=== PATIENT | male | born 1980 | race Caucasian/White ===

== ENCOUNTER 2018-04-14 20:01 | Inpatient (IN) | payer MEDICAID ==
[~2018-04-14] VITALS: Ht 160 cm; Wt 72.7 kg
--- NOTE | ~2018-04-14 | OP ---
PATIENT NAME: SONDRA BRYSON MEDICAL RECORD: [id number] :84 LOCATION:[id number] ADMISSION DATE:04/14/18 SURGEON: JAMISON WINSTON MD DATE OF OPERATION: 04/15/2018 PREOPERATIVE DIAGNOSIS: Incarcerated right recurrent inguinal hernia, large. POSTOPERATIVE DIAGNOSES: Incarcerated right recurrent inguinal hernia, large with incarcerated omentum in the right hemiscrotum. PROCEDURE: Open recurrent right indirect inguinal hernia repair with a polypropylene mesh. SURGEON: Jamison Winston MD E LEARNING COORDINATOR: None. BLOOD LOSS: Minimal. ANESTHESIA: General. COMPLICATIONS: None. The risks, possible complications, and alternatives to procedure were explained to the patient. He elects to proceed. OPERATIVE COURSE: The patient was conveyed to the operating room urgently on 04/15/2018. This procedure was performed urgently because we could not rule out a strangulated hernia. The abdomen and genitals were sterilely prepped and draped. An incision was accomplished in the right groin. Sharp dissection was carried down through the skin and subcutaneous tissue as well as Cyril fascia. I then bluntly cleaned the connective tissue from the underlying external oblique aponeurosis. I incised along the direction of its fibers. I bluntly dissected down through the internal oblique and transversus abdominis muscle layers. A preperitoneal pocket was fashioned bluntly. I was unable to reduce the large recurrent indirect hernia. At no time during the operation was there any apparent nervous injury. I incised into the hernia sac. I then began to reduce the right scrotal contents, which consisted of omentum only. The omentum was excised with the EnSeal device. I reperitonealized. I reduced the right indirect hernia as best I could, had to transect a portion of this sac. This was sent to pathology as a specimen. The cord structures were examined. Arterial signal could be heard in the cord structures with the handheld Doppler. I created a keyhole suture of polypropylene mesh around the cord structures, then sutured the 2 tags together posteriorly with #1 Surgidacs. I then cut 2 ovals out of a polypropylene mesh and then sutured the 2 ovals one on top of the other with a running #1 Surgidac. The mesh was then placed in the preperitoneal space. Once I was satisfied with placement of the mesh, I allowed the internal oblique and transversus abdominis muscle layers to come together over the mesh OPERATIVE REPORT [id number] SONDRA BRYSON and these were brought together with multiple interrupted horizontal mattress 0 Surgidacs incorporating a portion of the underlying mesh. The external oblique aponeurosis was then closed with running #1 Vicryls. Cyril fascia was approximated with interrupted 3-0 Vicryls. The subdermis was approximated with interrupted 3-0 Vicryls. The skin was approximated with a running intracuticular 4-0 Vicryl. The patient was then extubated and conveyed to post-anesthesia care unit, where he was in stable condition. TRANSINT:[id number] Voice Confirmation ID: [id number] DOCUMENT ID: [id number] JAMISON WINSTON MD at 1746 CC: [id number] DICTATION DATE: 04/16/18901 DOCUMENTATION COORDINATOR: 04/16/18 0934 ADM IN [facility] [address] [place] [id number]
[2018-04-14 20:37] LABS: APPEARANCE CLEAR (CLEAR); BILIRUBIN NEGATIVE (NEGATIVE); COLOR YELLOW (YELLOW); GLUCOSE NEGATIVE (NEGATIVE); KETONE NEGATIVE (NEGATIVE); NITRITE NEGATIVE (NEGATIVE); PROTEIN NEGATIVE (NEGATIVE); UROBILINOGEN NORMAL (NORMAL)
[2018-04-14 21:30] VITALS: BP 132/91
[2018-04-14 21:52] LABS: BASOPHILS 0.2 % (0-2); EOSINOPHILS 2.6 % (0-7); HEMATOCRIT 39.1 % (42.0-54.0); HEMOGLOBIN 13.6 g/dL (13.5-17.5); IMMATURE GRANULOCYTES 0.2 % (0-5); LYMPHOCYTES 40.1 % (15-50); MCH 30.6 pg (26.0-34.0); MCHC 34.8 g/dL (31.0-37.0); MCV 88.1 fL (80.0-100.0); MEAN PLATELET VOLUME 9.9 fL (7.4-10.4); MONOCYTES 8.7 % (2-11); NEUTROPHILS 48.2 % (40-80); PLATELET COUNT 241 10x3/uL (130-400); RBC 4.44 10x6/uL (4.20-6.10); RDW 13.1 % (11.5-14.5); WBC 5.3 10x3/uL (4.8-10.8)
[2018-04-14 22:00] LABS: ALBUMIN 3.8 g/dL (3.4-5.0); ALKALINE PHOSPHATASE 65 U/L (46-116); CALC OSMOLALITY 284 mosm/kg (275-300); CALCIUM 8.2 mg/dL (8.5-10.1); CHLORIDE - SERUM 107 mmol/L (98-107); GLUCOSE 106 mg/dL (74-106); POTASSIUM - SERUM 3.7 mmol/L (3.5-5.1); PROTEIN - SERUM 7.4 g/dL (6.4-8.2); SODIUM 142 mmol/L (136-145); UREA NITROGEN 18 mg/dL (7-18); eGFR NON AFRICAN AMERICAN 90 mL/min (90-120)
[2018-04-14 22:08] LABS: ALT (SGPT) 27 U/L (10-68)
[2018-04-14 22:30] VITALS: BP 144/84
[2018-04-14 23:30] VITALS: BP 135/94
[2018-04-15] VITALS (10 sets, daily range): BP systolic 110–137; BP diastolic 56–86; Ht 160 cm; Wt 72.7 kg
[2018-04-15 04:51] LABS: BASOPHILS 0.3 % (0-2); EOSINOPHILS 3.3 % (0-7); HEMATOCRIT 38.4 % (42.0-54.0); HEMOGLOBIN 13.1 g/dL (13.5-17.5); IMMATURE GRANULOCYTES 0.2 % (0-5); LYMPHOCYTES 35.5 % (15-50); MCH 30.5 pg (26.0-34.0); MCHC 34.1 g/dL (31.0-37.0); MCV 89.5 fL (80.0-100.0); MEAN PLATELET VOLUME 10.2 fL (7.4-10.4); MONOCYTES 11.3 % (2-11); NEUTROPHILS 49.4 % (40-80); PLATELET COUNT 230 10x3/uL (130-400); RBC 4.29 10x6/uL (4.20-6.10); RDW 13.3 % (11.5-14.5); WBC 6.1 10x3/uL (4.8-10.8)
[2018-04-15 05:25] LABS: ALBUMIN 3.4 g/dL (3.4-5.0); ALKALINE PHOSPHATASE 62 U/L (46-116); ALT (SGPT) 24 U/L (10-68); CALC OSMOLALITY 281 mosm/kg (275-300); CALCIUM 8.1 mg/dL (8.5-10.1); CARBON DIOXIDE 26.9 mmol/L (21.0-32.0); CHLORIDE - SERUM 106 mmol/L (98-107); CREATININE - SERUM 0.8 mg/dL (0.6-1.3); GLUCOSE 108 mg/dL (74-106); POTASSIUM - SERUM 3.6 mmol/L (3.5-5.1); PROTEIN - SERUM 6.8 g/dL (6.4-8.2); SODIUM 141 mmol/L (136-145); eGFR NON AFRICAN AMERICAN > 90 mL/min (90-120)
[2018-04-15 05:27] LABS: UREA NITROGEN 13 mg/dL (7-18)
[2018-04-16] VITALS: BP 97/62
[2018-04-16 04:00] VITALS: BP 96/59
[2018-04-16 08:12] VITALS: BP 87/55
[2018-04-16 12:58] VITALS: BP 111/71
[2018-04-16] MEDS ORDERED: HYDROCODON-ACE1 EAC7 PO (13:26)
[2018-04-16 19:49] VITALS: BP 112/61
== END 2018-04-16 20:38 | disposition home or self-care (01) | DRG 352 ==
LOC: D.ER 20:01 → D.MS 23:40
PROVIDERS: Family Medicine; Surgery
PROC: 0YU50JZ Supplement Right Inguinal Region with Synthetic Substitute, Open Approach (ICD-10-PCS; principal; 2018-04-15 11:00)
DX: K40.30 Unilateral inguinal hernia, with obstruction, without gangrene, not specified as recurrent (principal); F17.210 Nicotine dependence, cigarettes, uncomplicated